=== PATIENT | male | born 1955 | race Two or more races ===

== ENCOUNTER 2019-06-05 13:22 | Emergency (ER) | payer OTHER ==
[~2019-06-05] VITALS: Ht 152.4 cm; Wt 54.4 kg
[2019-06-05] MEDS ORDERED: LANTUS SOL100 UNIT/1 SUBQ (13:44)
--- NOTE | 2019-06-05 13:44 | NUR ---
ED Nurse Note: pt arrives from home with c/o sudden loss of vision to eye. no dizzines or headache. pt noted to have elevated bp at triage. placed on monitor and vs.
--- NOTE | 2019-06-05 13:52 | Emergency Room Report ---
History of Present Illness General Chief Complaint: Eye Problems Source: Patient Present Illness HPI Patient reports that on Wednesday at around 8:00 he lost his vision in his left eye. He denies any headache, trauma. Patient is a diabetic and has had "injections" for retinopathy. This occurred a year ago. Sugar this morning was 115. He takes insulin. He denies any weakness numbness nausea vomiting diarrhea chest pain. No fevers, chills, sore throat, palpitations, dysuria, abdominal pain, shortness of breath, joint pain, rashes, depression, anxiety, dizziness. Allergies: Coded Allergies: No Known Allergies (Unverified , 06/05/19) Patient History Past Medical History: see triage record Social History: Denies: smoking Social History Narrative From home Reviewed Nursing Documentation: PMH: Agreed; PSxH: Agreed Nursing Documentation-PMH Hx Diabetes: Yes Review of Systems All Other Systems: negative except mentioned in HPI Physical Exam Vital Signs Date Time Temp Pulse Resp B/P (MAP) Pulse Ox O2 Delivery O2 Flow Rate FiO2 06/05/19 13:29 98.2 86 18 173/89 (117) 96 Room Air Sp02 EP Interpretation: reviewed, normal General Appearance: well appearing, no apparent distress, GCS 15 Head: normocephalic Eyes: left eye other - Able to see a hand but unable to visualize eye chart; bilateral eye normal inspection, bilateral eye PERRL, bilateral eye EOMI ENT: normal pharynx, other - Overbite Neck: supple Respiratory: lungs clear, normal breath sounds Cardiovascular #1: regular rate, rhythm, no edema Cardiovascular #2: 2+ radial (R) Gastrointestinal: normal inspection, normal bowel sounds, non tender, no mass, non-distended Musculoskeletal: back normal, gait/station normal, normal range of motion Neurologic: alert, oriented x3, camp director III-XII nml as tested, motor strength/tone normal, DTRs symmetric, sensory intact, speech normal, other - Abnormal vision left eye Psychiatric: mood/affect normal Skin: no rash, warm/dry Medical Decision Making Diagnostic Impression: Primary Impression: Vision loss, left eye Additional Impression: Insulin dependent diabetes mellitus ER Course Patient presents with vision loss 3 days ago with a history of treatment for diabetic retinopathy. Differential includes central artery occlusion, diabetic retinopathy, vasculitis, electrolyte imbalance, stroke amongst others. Other than the vision loss the patient has a nonfocal neurologic exam. Evaluation with CT head, chest x-ray, EKG and labs. Patient treated with gentle IV hydration. The patient may require urgent ophthalmologic and neurologic consultation. EKG without injury. Patient was signed out to Dr. Worthington prior to return of CT and labs. EKG Diagnostic Results Rate: normal Rhythm: NSR ST Segments: no acute changes Rhythm Strip Diag. Results EP Interpretation: yes Rhythm: NSR, no PVC's, no ectopy Last Vital Signs Date Time Temp Pulse Resp B/P (MAP) Pulse Ox O2 Delivery O2 Flow Rate FiO2 06/05/19 13:29 98.2 86 18 173/89 (117) 96 Room Air Status: unchanged Disposition: ADMITTED INPATIENT Condition: Serious Willam Bronson MD Jun 05, 2019 13:52
--- NOTE | 2019-06-05 14:06 | NUR ---
ED Nurse Note: pt to ct scan.
--- NOTE | 2019-06-05 14:06 | NUR ---
ED Nurse Note: visual acuity done unable to visulaize from left eye. md aware.
--- NOTE | 2019-06-05 14:13 | Diagnostic Imaging Report ---
Indication: Dyspnea Comparison: None A single view chest radiograph was obtained. Findings: Cardiomediastinal appearance is within normal limits for age. The lungs are clear. Pulmonary vascularity is appropriate. The diaphragmatic contour is smooth and costophrenic angles are sharp. No pleural effusions are identified. The bones are unremarkable. Impression: No acute findings
[2019-06-05 14:47] LABS: BASOPHILS % (AUTO) 0.4 % (0.0-2.0); EOSINOPHILS % (AUTO) 0.7 % (0.0-3.0); HEMATOCRIT 46.2 % (42.0-52.0); HEMOGLOBIN 15.2 G/DL (14.2-18.0); LYMPHOCYTES % (AUTO) 12.6 % (20.0-45.0); MEAN CORPUSCULAR VOLUME 90 FL (80-99); MONOCYTES % (AUTO) 6.2 % (1.0-10.0); NEUTROPHILS % (AUTO) 80.1 % (45.0-75.0); PLATELET COUNT 410 K/UL (150-450); RED BLOOD COUNT 5.15 M/UL (4.70-6.10); RED CELL DISTRIBUTION WIDTH 12.5 % (11.6-14.8); WHITE BLOOD COUNT 11.3 K/UL (4.8-10.8)
[2019-06-05 14:52] LABS: APPEARANCE,URINE CLEAR; BILIRUBIN, URINE NEGATIVE (NEGATIVE); COLOR,URINE PALE YELLOW; GLUCOSE, URINE (UA) 4+ (NEGATIVE); KETONES,URINE NEGATIVE (NEGATIVE); LEUKOCYTE ESTERASE ,URINE NEGATIVE (NEGATIVE); NITRITE,URINE NEGATIVE (NEGATIVE); PH,URINE 5 (4.5-8.0); PROTEIN,URINE NEGATIVE (NEGATIVE); UROBILINOGEN,URINE NORMAL MG/DL (0.0-1.0)
[2019-06-05 14:55] VITALS: BP 154/67
--- NOTE | 2019-06-05 14:55 | Emergency Room Report ---
History of Present Illness General Chief Complaint: Eye Problems Source: Patient Present Illness HPI 64-year-old male presenting with left eye vision loss. He says it has been that way for the last 2 days. Says it very blurry. It is not painful. No slurred speech no arm or leg weakness. Says that this is happened before he has required shots in his eye one year ago. No other complaints Allergies: Coded Allergies: No Known Allergies (Unverified , 06/05/19) Patient History Past Medical History: see triage record Past Surgical History: none Pertinent Family History: none Reviewed Nursing Documentation: PMH: Agreed; PSxH: Agreed Nursing Documentation-PMH Hx Diabetes: Yes Review of Systems All Other Systems: negative except mentioned in HPI Physical Exam Vital Signs Date Time Temp Pulse Resp B/P (MAP) Pulse Ox O2 Delivery O2 Flow Rate FiO2 06/05/19 13:29 98.2 86 18 173/89 (117) 96 Room Air Sp02 EP Interpretation: reviewed, normal General Appearance: normal inspection, well appearing, no apparent distress, alert, GCS 15, non-toxic Head: normocephalic, atraumatic Eyes: bilateral eye normal inspection, bilateral eye PERRL, bilateral eye EOMI , bilateral eye other - no external abnormalities noted, sclera normal, EOMI, PERRL, grossly decreased vision L eye, cannot tell #fingers holding up. ENT: normal ENT inspection, normal pharynx, normal voice, moist mucus membranes Neck: normal inspection, full range of motion, supple Respiratory: normal inspection, lungs clear, normal breath sounds, no respiratory distress, no retraction, no wheezing, speaking full sentences, chest symmetrical Cardiovascular #1: normal inspection, regular rate, rhythm, normal capillary refill Cardiovascular #2: 2+ radial (R), 2+ radial (L) Gastrointestinal: normal inspection, non tender, soft, non-distended, no guarding Musculoskeletal: normal inspection, back normal, normal range of motion, non- tender Neurologic: alert, oriented x3, responsive, neurophysiology tech III-XII nml as tested - except vision, motor strength/tone normal, sensory intact, normal gait, speech normal, other - finger to nose normal. Psychiatric: normal inspection, judgement/insight normal, memory normal Medical Decision Making Diagnostic Impression: Primary Impression: Vision loss of left eye ER Course 64-year-old male presenting with left eye vision loss, painless DDX: LOC,, central retinal vein or artery occlusion, retinopathy, vitreous hemorrhage Plan: Obtain labs, ua, EKG, CXR CT head ER course: Patient has been monitored during ED stay, HD stable Work-up so far has been negative tonopen: R eye 30, L eye 35 I spoke to graphic art technician Said there is nothing else to be done that he recommends from the ER standpoint. He said in the setting of patient having shots in his high a year ago as well as diabetes that he is likely having a vitreous hemorrhage and there is no acute intervention to be done. He says that he does take patient's insurance he can see the patient in the office tomorrow or the next day.. We faxed the patient's facesheet to his office. The patient is to call Dr. Ferris' ys office tomorrow morning to set up an appointment urgently. Said to tell the patient to keep his head of bed elevated at night Disposition: DC to home, follow up with Dr Reynolds in the next 2-3 days. told him to call office first thing in them orning Please note that this Emergency Department Report was dictated using [employer] power plant superintendent technology software, occasionally this can lead to erroneous entry secondary to interpretation by the dictation equipment. EKG Diagnostic Results EP Interpretation: Yes Rate: normal Rhythm: NSR ST Segments: No acute changes ASA given to patient: No Rhythm Strip EP Interpretation: Yes Rate: 76 Rhythm: NSR, no PVCs, no ectopy Chest X-ray CXR: Ordered: Yes 1 view Indication: VISION LOSS EP interpretation: Yes Interpretation: No consolidation, no effusion, no PTX, no acute cardiopulmonary disease Impression: No acute disease Electronically signed by Chloé Worthington MD Laboratory Tests Test 06/05/19 14:13 06/05/19 14:31 Urine Color Pale yellow Urine Appearance Clear Urine pH 5 (4.5-8.0) Urine Specific [place] 1.015 (1.005-1.035) Urine Protein Negative (NEGATIVE) Urine Glucose (UA) 4+ (NEGATIVE) H Urine Ketones Negative (NEGATIVE) Urine Blood Negative (NEGATIVE) Urine Nitrite Negative (NEGATIVE) Urine Bilirubin Negative (NEGATIVE) Urine Urobilinogen Normal MG/DL (0.0-1.0) Urine Leukocyte Esterase Negative (NEGATIVE) White Blood Count 11.3 K/UL (4.8-10.8) H Red Blood Count 5.15 M/UL (4.70-6.10) Hemoglobin 15.2 G/DL (14.2-18.0) Hematocrit 46.2 % (42.0-52.0) Mean Corpuscular Volume 90 FL (80-99) Mean Corpuscular Hemoglobin 29.6 PG (27.0-31.0) Mean Corpuscular Hemoglobin Concent 32.9 G/DL (32.0-36.0) Red Cell Distribution Width 12.5 % (11.6-14.8) Platelet Count 410 K/UL (150-450) Mean Platelet Volume 5.4 FL (6.5-10.1) L Neutrophils (%) (Auto) 80.1 % (45.0-75.0) H Lymphocytes (%) (Auto) 12.6 % (20.0-45.0) L Monocytes (%) (Auto) 6.2 % (1.0-10.0) Eosinophils (%) (Auto) 0.7 % (0.0-3.0) Basophils (%) (Auto) 0.4 % (0.0-2.0) Erythrocyte Sedimentation Rate 21 MM/HR (0-20) H Prothrombin Time 10.2 SEC (9.30-11.50) Prothrombin Time INR 1.0 (0.9-1.1) PTT 27 SEC (23-33) Sodium Level 136 MMOL/L (136-145) Potassium Level 4.2 MMOL/L (3.5-5.1) Chloride Level 99 MMOL/L (98-107) Carbon Dioxide Level 25 MMOL/L (21-32) Anion Gap 12 mmol/L (5-15) Blood Urea Nitrogen 19 mg/dL (7-18) H Creatinine 0.8 MG/DL (0.55-1.30) Estimate Glomerular Filtration Rate > 60 mL/min (>60) Glucose Level 291 MG/DL (74-106) H Calcium Level 9.7 MG/DL (8.5-10.1) Total Bilirubin 0.4 MG/DL (0.2-1.0) Aspartate Amino Transferase (AST) 13 U/L (15-37) L Alanine Aminotransferase (ALT) 28 U/L (12-78) Alkaline Phosphatase 89 U/L (46-116) Total Creatine Kinase 79 U/L (26-308) Troponin I 0.000 ng/mL (0.000-0.056) Pro-B-Type Natriuretic Peptide 30 pg/mL (0-125) Total Protein 8.0 G/DL (6.4-8.2) Albumin 3.8 G/DL (3.4-5.0) Globulin 4.2 g/dL Albumin/Globulin Ratio 0.9 (1.0-2.7) L CT/MRI/US Diagnostic Results CT/MRI/US Diagnostic Results : Imaging Test Ordered: CT HEAD Impression Impression: No mass effect, edema or acute bleed. Last Vital Signs Date Time Temp Pulse Resp B/P (MAP) Pulse Ox O2 Delivery O2 Flow Rate FiO2 06/05/19 13:29 98.2 86 18 173/89 (117) 96 Room Air Disposition: HOME, SELF-CARE Condition: Stable Chloé Worthington M.D. Jun 05, 2019 14:55
--- NOTE | 2019-06-05 14:55 | Diagnostic Imaging Report ---
Indication: Headache Technique: Contiguous 5 mm thick transaxial imaging of the head obtained in a Siemens Sensation [address] scanner. Soft tissue and bone windows generated. Automatic Exposure Control was utilized. Total Dose length Product (DLP): [address] Dose Index Volume (CTDIvol): 60 mGy Comparison: none Findings: The size and configuration of the cortical sulci, basal cisterns, and ventricles are within normal limits for age. There is no mass effect, midline shift, or edema identified. There is no evidence of acute hemorrhage or abnormal intra-axial or extra-axial fluid collections. The bones and soft tissues are unremarkable. Impression: No mass effect, edema or acute bleed. The CT scanner at [facility] is accredited by the [employer] and the scans are performed using dose optimization techniques as appropriate to a performed exam including Automatic Exposure control.
[2019-06-05 14:56] LABS: ANION GAP 12 mmol/L (5-15); BLOOD UREA NITROGEN 19 mg/dL (7-18); CALCIUM 9.7 MG/DL (8.5-10.1); CARBON DIOXIDE 25 MMOL/L (21-32); CHLORIDE 99 MMOL/L (98-107); CREATININE 0.8 MG/DL (0.55-1.30); POTASSIUM 4.2 MMOL/L (3.5-5.1); SODIUM 136 MMOL/L (136-145)
--- NOTE | 2019-06-05 14:58 | NUR ---
ED Nurse Note: pt denies increased discomfort. labs pending.
[2019-06-05 15:07] LABS: ALANINE AMINOTRANSFERASE 28 U/L (12-78); ALBUMIN 3.8 G/DL (3.4-5.0); ALBUMIN/GLOBULIN RATIO 0.9 (1.0-2.7); ALKALINE PHOSPHATASE 89 U/L (46-116); ASPARTATE AMINO TRANSFERASE 13 U/L (15-37); BILIRUBIN,TOTAL 0.4 MG/DL (0.2-1.0); CREATINE KINASE 79 U/L (26-308)
[2019-06-05] MEDS ORDERED: Tetracaine 0.5% Opth 4ml Soln LEFT EYE ONE (16:30)
[2019-06-05 16:39] VITALS: BP 134/70
[2019-06-05 17:17] VITALS: BP 141/66
--- NOTE | 2019-06-05 17:18 | NUR ---
ED Nurse Note: Pt cleared by health care Provider for discharge. DC instructions was given and explained to pt and verbalized understanding of teachings. All medical devices such as ID band removed. Pt is AAO x4, ambulatory and left with all personal belongings.
--- NOTE | 2019-06-06 16:47 | Cardiology Report ---
APPROVED REPORT EKG Measurement Heart [id number] Normal sinus rhythm Normal ECG
== END 2019-06-05 17:18 | disposition home or self-care (01) ==
LOC: EMR 13:50
DX: H54.62 Unqualified visual loss, left eye, normal vision right eye (principal); E11.9 Type 2 diabetes mellitus without complications; Z79.4 Long term (current) use of insulin; R51 Headache; R06.00 Dyspnea, unspecified
CPT/HCPCS: 36415; 70450; 71045; 80053; 81003; 82550; 82962; 83880; 84484; 85025; 85610; 85651; 85730; 93005; Z7502; 99284